=== PATIENT | male | born 2000 | race Caucasian/White ===

== ENCOUNTER 2021-10-03 10:18 | Emergency (ER) | payer MEDICAID ==
[~2021-10-03] VITALS: Ht 175.3 cm; Wt 54.5 kg
[~2021-10-03 10:18] MED LIST: ALBU8.5H4 IH; HYDR-4383 PO; PRED20TA PO
[2021-10-03 10:43] VITALS: BP 117/69
== END 2021-10-03 11:18 | disposition home or self-care (01) ==
LOC: ER 10:19
DX: M20.091 Other deformity of right finger(s) (principal)
CPT/HCPCS: 73140; 99283